=== PATIENT | female | born 1995 | race Asian ===

== ENCOUNTER 2018-12-24 07:05 | Day surgery (SDC) | payer OTHER ==
[~2018-12-24] VITALS: Ht 175.3 cm; Wt 94.5 kg
[2018-12-24 08:11] VITALS: Ht 175.3 cm; Wt 94.5 kg
[2018-12-24] MEDS ORDERED: IRON PILLS (08:16)
[2018-12-24] MEDS ORDERED: BIRTH CONTROL (08:16)
[2018-12-24 08:19] VITALS: BP 111/51; PULSE 85; RESP 18
--- NOTE | 2018-12-24 08:19 | PREAC ---
Date/Time of Note Date/Time of Note DATE: 12/24/18 TIME: 08:17 Anesthesia Eval and Record Evaluation Time Pre-Procedure Interview DATE: 12/24/18 TIME: 08:17 Age 23 Sex female NPO: 8 hrs Preoperative diagnosis GI bleeding, positive occult blood Planned procedure EGD, colonoscopy Past Medical History Past Medical History: Includes GI: Obesity Surgery & Anesthesia Issues No known issue Meds Anticoagulation: No Beta Meg within 24 hr: No Reason Beta Meg not given: Pt. not on B-Meg Reported Medications [Iron Pills] No Conflict Check 12/24/18 [ Control ] No Conflict Check 12/24/18 Meds reviewed: Yes Allergies Allergies Reviewed: Yes Labs/Studies Labs Reviewed: Reviewed by anesthesiologist test: Negative Pre-procedure Exam Airway: Adequate mouth opening Mallampati: Mallampati II Teeth: Normal Lung: Normal Heart: Normal ASA Physical Status ASA physical status: 2 Emergency: None Planned Anesthetic General/MAC: MAC Planned Pain Management Parenteral pain med Pre-operative Attestations Prior to commencing anesthesia and surgery, the patient was re-evaluated, there was verification of: *The patient's identity *The results of appropriate recent lab work and preoperative vital signs *The above evaluation not changing prior to induction *Anesthetic plan, risk benefits, alternative and complications discussed with patient/family; questions answered; patient/family understands, accepts and wishes to proceed. ZAYDA MONTES DE OCA MD Dec 24, 2018 08:19
[2018-12-24] MEDS ORDERED: PROPOFOL 40 ML ONE (08:25)
[2018-12-24] MEDS ORDERED: MIDAZOLAM 1 MG/ML 2 ML INJ IV PRN (08:30)
[2018-12-24] MEDS ORDERED: EPHEDrine SULFATE 50 MG/5 ML SYG IV PRN (08:30)
[2018-12-24] MEDS ORDERED: FENTAnyl 50 MCG/ML VIAL IV PRN ×3 (08:30)
[2018-12-24] MEDS ORDERED: DIPHENHYDRAMINE 50 MG INJ IV PRN (08:30)
[2018-12-24] MEDS ORDERED: METOCLOPRAMIDE 10 MG INJ IV PRN (08:30)
[2018-12-24] MEDS ORDERED: OXYCODONE/ACETAMINOPHEN (5/325) TAB PO PRN ×2 (08:30)
[2018-12-24] MEDS ORDERED: ONDANSETRON 4 MG INJ IV PRN (08:30)
[2018-12-24] MEDS ORDERED: LABETALOL HCL 20MG INJ IV PRN (08:30)
[2018-12-24] MEDS ORDERED: hydrALAzine 20 MG INJ IV PRN (08:30)
[2018-12-24] MEDS ORDERED: MEPERIDINE 25 MG INJ IV PRN (08:30)
[2018-12-24 09:31] VITALS: BP 119/66; PULSE 61; RESP 20
--- NOTE | 2018-12-24 10:00 | PAC ---
Date/Time of Note Date/Time of Note DATE: 12/24/18 TIME: 10:00 Post-Anesthesia Notes Post-Anesthesia Note Last documented vital signs Vital Signs Date Temp Pulse Resp B/P (MAP) Pulse Ox O2 O2 Flow FiO2 Time Delivery Rate 12/24/18 61 20 119/66 100 Room Air 09:31 (83) 12/24/18 98.3 08:19 Activity: WNL Respiratory function: WNL Cardiovascular function: WNL Mental status: Baseline Pain reasonably controlled: Yes Hydration appropriate: Yes Nausea/Vomiting absent: Yes Comments BT: 98.5 ZAYDA MONTES DE OCA MD Dec 24, 2018 10:00
== END 2018-12-24 13:44 | disposition home or self-care (01) ==
LOC: GIL 07:05
PROVIDERS: ATTEND Internal Medicine Gastroenterology
DX: R19.5 Other fecal abnormalities (principal); K64.8 Other hemorrhoids
CPT/HCPCS: 43239; 45378; 84703; 88305; 88312; Z7610